=== PATIENT | male | born 1955 | race Caucasian/White ===

== ENCOUNTER → 2021-09-25 08:50 | Outpatient (CLI) | payer MEDICARE, OTHER, SELFPAY ==
--- NOTE | ~2021-09-25 | MR_ITS ---
EXAMINATION: MR hip RT wo con DATE: 09/25/2021 09:59 INDICATION: Right hip pain. Prior incision and drainage at the right hip. TECHNIQUE: Magnetic resonance imaging (MRI) of the right hip was performed without intravenous contr ast. Sequences included full-field axial PD-weighted FS FSE and T1-weighted FSE, coronal of the pelvi s with PD-weighted FS FSE, T2-weighted FSE and T1-weighted FSE, small field of view of the right hip with axial PD-weighted FS FSE, sagittal PD-weighted FS FSE, coronal PD-weighted FS FSE and coronal T2 weighted FSE. Additional radial T1-weighted FGR oriented orthogonal to the acetabular rim were obt ained for evaluation of the labrum. COMPARISON: None FINDINGS: Bones/labrum/cartilage: Alignment is normal. No fracture or avascular necrosis. Moderate to severe osteoarthritis at the rig ht hip with nonuniform joint space narrowing most prominent anterosuperiorly and superolaterally were appears contreras near full-thickness with subarticular cystic change along the superolateral rim of th e glenoid and with mild subarticular edema along the femoral head. There is diffuse labral degenerati on. Decreased right anterosuperior femoral head neck offset with prominent cystic change at the anter osuperior femoral head neck junction which can be seen with femoral acetabular impingement. There is diffuse degenerative tearing of the right acetabular labrum. At least mild osteoarthritis at the left hip with relatively preserved joint space but prominent subarticular cystic change at the lateral ma rgin of the superolateral left acetabulum. Partially visualized postoperative changes in the lumbar s pine including L5 laminectomy and posterior spinal fusion with bilateral vertical srinath and pedicle scr ew fixation at L4-S1. Fluid: Prominent increased but heterogeneous fluid signal surrounding the right hip consistent with small ri ght hip joint effusion and more prominent synovitis. Soft tissues: There is additional soft tissue edema as well as multiple small foci of susceptibility artifact along a surgical wound at the lateral right buttock extending posterolaterally from the cephalad tip of th e greater trochanter. Nonspecific 5 x 4 x 3 cm region of increased fluid signal at the medial aspect of the right gluteus yvette along its origin at the caudal aspect of the sacrum which could be relat ed to low to moderate grade muscle strain or focal nonspecific myositis including infectious or infla mmatory etiologies. High-grade partial if not complete tear of the distal right gluteus minimus tendo n. The tear margin appears somewhat irregular but best defined is retracted approximately 2.5 cm from the anterior facet of the greater trochanteric footplate. There is relatively symmetric mild fatty a trophy of the bilateral gluteus medius minimus and yvette muscle bellies with relative sparing of th e gluteus medius muscle bellies, the tendons of both which appear to remain intact. The bilateral steven opsoas and proximal hamstring tendons are normal. Limited evaluation of visceral organs of the pelvis is unremarkable. No pathologically enlarged pelvic/inguinal lymphadenopathy. IMPRESSION: 1. Likely high-grade partial if not complete tear of the right gluteus minimus tendon. 2. Moderate to severe right hip osteoarthritis with diffuse labral degeneration. 3. Small right hip joint effusion along with prominent synovitis which appears to extend into the glu teus minimus tear defect. 4. Surgical wound/scar along the lateral right hip. Correlate with surgical history. Reviewed, dictated and finalized at location A. [facility] [employer] [facility]
== END ==
PROVIDERS: Visit Provider Physician Assistant
DX: M25.551 Pain in right hip (principal); Z98.890 Other specified postprocedural states; S76.811A Strain of other specified muscles, fascia and tendons at thigh level, right thigh, initial encounter; M16.11 Unilateral primary osteoarthritis, right hip; M25.451 Effusion, right hip
CPT/HCPCS: 73721